=== PATIENT | female | born 1990 | race Two or more races ===

== ENCOUNTER 2021-12-24 13:40 | Emergency (ER) | payer OTHER, MEDICAID ==
[~2021-12-24] VITALS: Ht 157.5 cm; Wt 50.0 kg
[2021-12-24 14:18] LABS: Basophils # (auto) 0 10 ^3/uL (0-0.2); Basophils % (auto) 0.4 % (0.0-2.0); Eosinophils # (auto) 0.1 10 ^3/uL (0-0.8); Eosinophils % (auto) 1.5 % (0.0-7.0); Hematocrit 39.9 % (36.0-46.0); Hemoglobin 13.3 g/dL (12.2-16.2); Lymphocytes # (auto) 1.5 10 ^3/uL (0.4-5.4); Mean Corpuscular Hgb Conc. 33.3 g/dL (32.0-36.0); Mean Corpuscular Volume 93.2 fL (80.0-100.0); Monocytes # (auto) 0.6 10 ^3/uL (0-1.3); Monocytes % (auto) 9.4 % (0.0-12.0); Neutrophils # (auto) 4.4 10 ^3/uL (1.6-8.6); Neutrophils % (auto) 65.7 % (37.0-80.0); Red Blood Cells 4.28 10^6/uL (4.0-5.20); Red Cell Distribution Width 13.6 % (11.8-14.3); White Blood Cell 6.7 10^3/uL (4.4-10.8)
[2021-12-24 14:40] LABS: Albumin 3.4 g/dL (3.4-5.0); Calcium 7.7 mg/dL (8.5-10.1); Potassium 3.6 mmol/L (3.5-5.1)
[2021-12-24 14:44] LABS: BUN/Creatinine Ratio 20.3; Bilirubin, Total 0.7 mg/dL (0.2-1.0); Total Protein 6.3 g/dL (6.4-8.2)
[2021-12-24 17:30] VITALS: BP 106/64
== END 2021-12-24 17:43 | disposition home or self-care (01) ==
LOC: ER 13:40 → EDBD 13:40 → ER 17:43
DX: I95.1 Orthostatic hypotension (principal); F12.10 Cannabis abuse, uncomplicated
CPT/HCPCS: 36415; 80053; 85025; 93005

== ENCOUNTER 2023-11-24 15:22 | Emergency (ER) | payer OTHER, MEDICAID ==
[~2023-11-24] VITALS: Ht 165.1 cm; Wt 73.0 kg
[2023-11-24 16:23] VITALS: BP 122/70; PULSE 93; RESP 16; TEMP 99; O2SAT 99
[2023-11-24] MEDS ORDERED: IBUP-1454 PO (17:15)
== END 2023-11-24 17:18 | disposition home or self-care (01) ==
LOC: EDBD 15:22 → ER 15:22
DX: R51.9 Headache, unspecified (principal); F15.90 Other stimulant use, unspecified, uncomplicated; Z79.899 Other long term (current) drug therapy; V89.2XXA Person injured in unspecified motor-vehicle accident, traffic, initial encounter; Y93.I9 Activity, other involving external motion; Y92.89 Other specified places as the place of occurrence of the external cause; Y99.8 Other external cause status